=== PATIENT | female | born 2000 | race Caucasian/White ===

== ENCOUNTER 2024-04-08 15:19 | Emergency (ER) | payer OTHER ==
[2024-04-08] MEDS: diphenhydrAMINE 50 MG/ML SDV IVPUSH ONE ×2 (16:10→16:20)
[2024-04-08] MEDS: methylPREDNISolone Sodium Succinate 125 MG/2 ML SDV IV ONE (16:10)
== END 2024-04-08 17:39 | disposition home or self-care (01) ==
LOC: FB.ED 15:19
DX: T48.291A Poisoning by other drugs acting on muscles, accidental (unintentional), initial encounter (principal); F41.9 Anxiety disorder, unspecified; E66.9 Obesity, unspecified; Z79.899 Other long term (current) drug therapy; Z88.8 Allergy status to other drugs, medicaments and biological substances; Z68.31 Body mass index [BMI] 31.0-31.9, adult
CPT/HCPCS: 96374; 96375; 99283; 99284; J1200; J2919

== ENCOUNTER 2024-08-17 00:48 | Emergency (ER) | payer OTHER ==
[2024-08-17] MEDS: Amoxicillin/Clavulanate K 875-125 MG Tab PO ONE (01:46)
== END 2024-08-17 01:59 | disposition home or self-care (01) ==
LOC: FB.ED 00:48
DX: J02.9 Acute pharyngitis, unspecified (principal); J20.9 Acute bronchitis, unspecified; J01.90 Acute sinusitis, unspecified; E66.9 Obesity, unspecified; Z79.899 Other long term (current) drug therapy; Z86.16 Personal history of COVID-19
CPT/HCPCS: 99284; A9270